=== PATIENT | male | born 2000 | race Caucasian/White ===

== ENCOUNTER 2021-02-10 17:29 | Emergency (ER) | payer OTHER ==
[~2021-02-10] VITALS: Ht 165.1 cm; Wt 61.2 kg
[~2021-02-10 17:29] MED LIST: BUDE1AER IH; FLUT0.057 NS
[2021-02-10 17:32] VITALS: BP 126/76
--- NOTE | 2021-02-10 17:36 | NUR ---
Patient ambulated to bed 11 with steady gait.
--- NOTE | 2021-02-10 17:51 | NUR ---
Dr. Lopez is evaluating the patient at bedside.
[2021-02-10 18:56] VITALS: BP 126/76
--- NOTE | 2021-02-10 18:57 | NUR ---
Patient discharged with v/s stable. Written and verbal after care instructions given and explained. Patient verbalized understanding. Ambulatory with steady gait. All questions addressed prior to discharge. Advised to follow up with PMD.
== END 2021-02-10 18:57 | disposition home or self-care (01) ==
LOC: MED 17:29
DX: Z11.4 Encounter for screening for human immunodeficiency virus [HIV] (principal); J45.909 Unspecified asthma, uncomplicated
CPT/HCPCS: 99283